=== PATIENT | male | born 1970 ===

== ENCOUNTER 2020-12-16 06:53 | Day surgery (SDC) | payer OTHER ==
[~2020-12-16 06:53] MED LIST: CARVEDILOL6.25 MG PO; LIPITOR80 MG PO; LOVAZA1 GM PO; SINGULAIR 10MG10 MG PO
== END 2020-12-16 16:30 | disposition home or self-care (01) ==
LOC: CIR.AMB 06:53
PROVIDERS: ATTEND Colon & Rectal Surgery
DX: K60.1 Chronic anal fissure (principal); Z20.822 Contact with and (suspected) exposure to COVID-19